=== PATIENT | male | born 1980 | race Asian ===

== ENCOUNTER 2018-05-18 08:14 | Day surgery (SDC) | payer OTHER ==
[~2018-05-18 08:14] MED LIST: METOPROLOL 5 MG INJ; SEVOFLURANE 15 MIN
[2018-05-18] MEDS ORDERED: MIDAZOLAM 1 MG/ML 2 ML INJ (10:30)
[2018-05-18] MEDS ORDERED: ROPIVACAINE 0.5 % 30 ML VIAL (10:31)
[2018-05-18] MEDS ORDERED: EPINEPHrine 1 MG/ML 30 ML INJ INJ (11:30)
[2018-05-18] MEDS ORDERED: hydrALAzine 20 MG INJ (11:59)
[2018-05-18] MEDS: CA CHLORIDE 10% 10 ML SYRINGE (14:00)
[2018-05-18] MEDS: THROMBIN 5000 UNIT VIAL (14:00)
[2018-05-18] MEDS ORDERED: PROPOFOL 20 ML (14:06)
[2018-05-18] MEDS ORDERED: ROCURONIUM 50 MG INJ (14:06)
[2018-05-18] MEDS ORDERED: LIDOCAINE 2% (SDV) 5 ML INJ (14:06)
[2018-05-18] MEDS ORDERED: ONDANSETRON 4 MG INJ (14:07)
[2018-05-18] MEDS ORDERED: CEFAZOLIN 1 GM INJ (14:07)
[2018-05-18] MEDS: POLYMYXIN/BACITRACIN 1L IRRIG IRR (14:18)
[2018-05-18] MEDS: ROPIVACAINE 0.5 % 30 ML VIAL (14:18)
[2018-05-18] MEDS ORDERED: MEPERIDINE 25 MG INJ (14:28)
[2018-05-18] MEDS: POVIDONE IODINE 10% 28.4 GM OINT (14:35)
[2018-05-18] MEDS ORDERED: SOD CHLORIDE 0.9% 1,000 ML IV (14:43)
[2018-05-18] MEDS: MEPERIDINE 25 MG INJ IV (14:50)
[2018-05-18] MEDS ORDERED: DIPHENHYDRAMINE 50 MG INJ IV (15:00)
[2018-05-18] MEDS ORDERED: ONDANSETRON 4 MG INJ IV ×2 (15:00)
[2018-05-18] MEDS ORDERED: HYDROmorphONE 1 MG/5 ML IV SYRINGE IV ×2 (15:00)
[2018-05-18] MEDS ORDERED: OXYCODONE/ACETAMINOPHEN (5/325) TAB PO ×2 (15:00)
[2018-05-18] MEDS ORDERED: FENTAnyl 50 MCG/ML VIAL IV (15:00)
[2018-05-18] MEDS ORDERED: morphine 2 MG INJ IV (16:00)
[2018-05-18] MEDS: METOCLOPRAMIDE 10 MG INJ IV (16:17)
== END 2018-05-18 16:50 | disposition home or self-care (01) ==
LOC: SDS 08:14
DX: M94.212 Chondromalacia, left shoulder (principal); S46.212D Strain of muscle, fascia and tendon of other parts of biceps, left arm, subsequent encounter; X58.XXXD Exposure to other specified factors, subsequent encounter
CPT/HCPCS: 29823; 86999; 88304